=== PATIENT | male | born 1955 | race Caucasian/White ===

== ENCOUNTER → 2021-07-24 | Outpatient (CLI) | payer MEDICARE ==
[2021-07-24 14:52] LABS: BASO # 0.03 K/mm3 (0.02-0.10); EOS # 0.17 K/mm3 (0.04-0.40); EOS % 2.6 % (0.0-4.0); HEMATOCRIT 50.7 % (42.0-52.0); LYMPH# 1.27 K/mm3 (1.50-4.00); MEAN CELL VOLUME 89 fl (78-100); MEAN CORPUSCULAR HEMOGLOBIN 30 pg (27-31); MEAN CORPUSCULAR HGB CONC 34 g/dL (33-37); MEAN PLATELET VOLUME 9.3 fl (7.4-10.4); MONO # 0.54 K/mm3 (0.20-0.80); NEU # 4.62 K/mm3 (1.40-6.50); PLATELET COUNT 185 K/mm3 (130-400); RED CELL DISTRIBUTION WIDTH 12.3 % (11.5-14.5); WHITE BLOOD COUNT 6.6 K/mm3 (4.8-10.8)
[2021-07-24 15:01] LABS: ALBUMIN 4.1 g/dL (3.4-4.8); POTASSIUM 4.2 mmol/L (3.5-5.1)
[2021-07-24 15:02] LABS: CALCIUM 9.6 mg/dL (8.3-10.5)
[2021-07-24 15:04] LABS: TOTAL PROTEIN 7.1 g/dL (6.2-8.1)
[2021-07-24 15:05] LABS: TOTAL BILIRUBIN 2.4 mg/dL (0.2-1.2)
[2021-07-24 15:10] LABS: MAGNESIUM 1.81 mg/dL (1.60-2.60)
[2021-07-24 16:14] LABS: ERYTHROCYTE SEDIMENTATION RATE 7 mm/hr (0-20)
[2021-07-25 02:19] LABS: TESTOSTERONE 323 ng/dL (221-716)
== END ==
LOC: LAB 14:33
PROVIDERS: Internal Medicine
DX: Z12.5 Encounter for screening for malignant neoplasm of prostate (principal); I25.10 Atherosclerotic heart disease of native coronary artery without angina pectoris; K90.9 Intestinal malabsorption, unspecified; I10 Essential (primary) hypertension; E78.2 Mixed hyperlipidemia; M15.9 Polyosteoarthritis, unspecified; F52.21 Male erectile disorder; L20.9 Atopic dermatitis, unspecified

== ENCOUNTER → 2022-12-31 | Outpatient (CLI) | payer MEDICARE ==
[2022-12-31 13:13] LABS: D-DIMER 0.53 mg/L FEU (0.15-0.50)
== END ==
LOC: LAB 12:28
PROVIDERS: Internal Medicine
DX: Z12.5 Encounter for screening for malignant neoplasm of prostate (principal); M15.9 Polyosteoarthritis, unspecified; I25.10 Atherosclerotic heart disease of native coronary artery without angina pectoris; E78.2 Mixed hyperlipidemia; I10 Essential (primary) hypertension; K90.9 Intestinal malabsorption, unspecified; L20.9 Atopic dermatitis, unspecified; N40.1 Benign prostatic hyperplasia with lower urinary tract symptoms; F52.21 Male erectile disorder; R20.2 Paresthesia of skin

== ENCOUNTER → 2024-02-10 | Outpatient (CLI) | payer MEDICARE ==
[2024-02-10 08:55] LABS: BASO # 0.01 K/mm3 (0.02-0.10); EOS # 0.01 K/mm3 (0.04-0.40); EOS % 0.1 % (0.0-4.0); HEMATOCRIT 49.4 % (42.0-52.0); HEMOGLOBIN 16.1 g/dL (13.5-18.0); LYMPH# 0.71 K/mm3 (1.50-4.00); MEAN CELL VOLUME 95 fl (78-100); MEAN CORPUSCULAR HEMOGLOBIN 31 pg (27-31); MEAN CORPUSCULAR HGB CONC 33 g/dL (33-37); MEAN PLATELET VOLUME 9.3 fl (7.4-10.4); MONO # 0.48 K/mm3 (0.20-0.80); NEU # 9.37 K/mm3 (1.40-6.50); PLATELET COUNT 181 K/mm3 (130-400); RED BLOOD COUNT 5.21 M/mm3 (4.20-5.60); WHITE BLOOD COUNT 10.6 K/mm3 (4.8-10.8)
[2024-02-10 09:03] LABS: ALBUMIN 4.2 g/dL (3.4-4.8)
[2024-02-10 09:04] LABS: CALCIUM 9.4 mg/dL (8.3-10.5)
[2024-02-10 09:06] LABS: TOTAL PROTEIN 6.4 g/dL (6.2-8.1)
[2024-02-10 09:12] LABS: MAGNESIUM 2.05 mg/dL (1.60-2.60)
[2024-02-10 09:50] LABS: TOTAL BILIRUBIN 1.5 mg/dL (0.2-1.2)
[2024-02-10 23:10] LABS: TESTOSTERONE 179 ng/dL (221-716)
[2024-02-10 23:12] LABS: HEPATITIS C VIRUS ANTIBODY Negative (Nonreactiv)
== END ==
LOC: LAB 08:24
PROVIDERS: Internal Medicine
DX: Z12.5 Encounter for screening for malignant neoplasm of prostate (principal); Z12.11 Encounter for screening for malignant neoplasm of colon; Z11.59 Encounter for screening for other viral diseases; I10 Essential (primary) hypertension; E78.2 Mixed hyperlipidemia; N52.9 Male erectile dysfunction, unspecified; R73.9 Hyperglycemia, unspecified; M85.80 Other specified disorders of bone density and structure, unspecified site

== ENCOUNTER → 2024-02-18 | Outpatient (CLI) | payer MEDICARE ==
[2024-02-18 18:47] LABS: FOLLICLE STIMULATING HORMONE 4.5 mIU/mL (1.0-12.0); PROLACTIN AMS 18.2 ng/mL (3.5-19.4)
== END ==
LOC: LAB 09:29
PROVIDERS: Internal Medicine
DX: R89.1 Abnormal level of hormones in specimens from other organs, systems and tissues (principal)

== ENCOUNTER → 2024-05-04 | Outpatient (CLI) | payer MEDICARE ==
[~2024-05-04] MED LIST: ATENOLOL100 MG PO; CELEBREX 200MG200 MG PO; FLOMAX0.4 MG PO; LISINOPRIL40 MG PO; PERCOCET 325 MG1 TA2 PO; PREDNISONE20 M1 PO; TORSEMIDE20 M1 PO; TRAMADOL 50 MG TAB PO; TYLENOL ARTHRI650 M2 PO
[2024-05-04 12:51] LABS: ALBUMIN 4.1 g/dL (3.4-4.8)
[2024-05-04 12:53] LABS: CALCIUM 9.9 mg/dL (8.3-10.5)
[2024-05-04 12:54] LABS: TOTAL PROTEIN 6.7 g/dL (6.2-8.1)
[2024-05-04 12:56] LABS: TOTAL BILIRUBIN 1.4 mg/dL (0.2-1.2)
[2024-05-04 13:01] LABS: MAGNESIUM 2.47 mg/dL (1.60-2.60)
== END ==
LOC: LAB 12:19
PROVIDERS: Internal Medicine
DX: I10 Essential (primary) hypertension (principal)

== ENCOUNTER 2024-05-05 07:44 | Emergency (ER) | payer MEDICARE ==
[~2024-05-05] VITALS: Ht 170.2 cm; Wt 98.8 kg
[2024-05-05] MEDS ORDERED: TORSEMIDE20 M1 PO (08:02)
[2024-05-05] MEDS ORDERED: TRAMADOL 50 MG TAB PO (08:02)
[2024-05-05] MEDS ORDERED: LISINOPRIL40 MG PO (08:03)
[2024-05-05] MEDS ORDERED: ATENOLOL100 MG PO (08:03)
[2024-05-05] MEDS ORDERED: FLOMAX0.4 MG PO (08:04)
[2024-05-05] MEDS ORDERED: PREDNISONE20 M1 PO (08:05)
[2024-05-05] MEDS ORDERED: TYLENOL ARTHRI650 M2 PO (08:05)
[2024-05-05] MEDS ORDERED: CELEBREX 200MG200 MG PO (08:06)
[2024-05-05 08:41] LABS: BASO # 0.01 K/mm3 (0.02-0.10); EOS # 0.02 K/mm3 (0.04-0.40); EOS % 0.2 % (0.0-4.0); HEMATOCRIT 51.5 % (42.0-52.0); LYMPH# 0.78 K/mm3 (1.50-4.00); MEAN CELL VOLUME 96 fl (78-100); MEAN CORPUSCULAR HEMOGLOBIN 32 pg (27-31); MEAN CORPUSCULAR HGB CONC 33 g/dL (33-37); MEAN PLATELET VOLUME 9.2 fl (7.4-10.4); MONO # 0.72 K/mm3 (0.20-0.80); NEU # 8.37 K/mm3 (1.40-6.50); PLATELET COUNT 161 K/mm3 (130-400); RED BLOOD COUNT 5.35 M/mm3 (4.20-5.60); RED CELL DISTRIBUTION WIDTH 13.9 % (11.5-14.5); WHITE BLOOD COUNT 9.9 K/mm3 (4.8-10.8)
[2024-05-05] MEDS ORDERED: oxyCODONE/Acetaminophen 5-325 MG TAB PO ONE ×4 (08:45→20:30)
[2024-05-05] MEDS ORDERED: Acetaminophen 325 MG TAB PO ONE ×3 (08:45→20:30)
[2024-05-05 08:50] LABS: SODIUM 139 mmol/L (136-145)
[2024-05-05 08:51] LABS: CALCIUM 9.3 mg/dL (8.3-10.5)
[2024-05-05 08:52] LABS: GLUCOSE 85 mg/dL (75-110)
[2024-05-05 08:53] LABS: CARBON DIOXIDE 26 mmol/L (23-31)
[2024-05-05 08:58] LABS: RSV RAPID MOLECULAR IN HOUSE NEGATIVE (NEGATIVE)
[2024-05-05 09:04] LABS: TROPONIN-I < 0.030 ng/mL (0.00-0.033)
[2024-05-05] MEDS ORDERED: NS 1,000 ML IV SCH ×3 (10:00→15:30)
[2024-05-05] MEDS ORDERED: Albuterol 0.083% Nebule (2.5 MG/3 ML) IH ONE (11:15)
[2024-05-05 13:01] LABS: PH-URINE 6.5 (5.0 - 8.0); URINE APPEARANCE CLEAR (CLEAR); URINE BILIRUBIN NEGATIVE (NEGATIVE); URINE BLOOD NEGATIVE (NEGATIVE); URINE COLOR YELLOW (YELLOW); URINE GLUCOSE NEGATIVE (NEGATIVE); URINE KETONE NEGATIVE (NEGATIVE); URINE LEUKOCYTE ESTERASE NEGATIVE (NEGATIVE); URINE NITRATE NEGATIVE (NEGATIVE); URINE PROTEIN(semi-quant) NEGATIVE (NEGATIVE)
[2024-05-05 18:40] LABS: CALCIUM 8.1 mg/dL (8.3-10.5)
[2024-05-05 20:16] VITALS: BP 114/63
[2024-05-05] MEDS ORDERED: PERCOCET 325 MG1 TA2 PO (20:20)
[2024-05-05] MEDS ORDERED: Home oxyCODONE/Acetaminophen 5/325 MG #4 TAB/PACK PO ONE (20:30)
== END 2024-05-05 20:40 | disposition home or self-care (01) ==
LOC: ED 07:44
PROVIDERS: Family Medicine
DX: E86.9 Volume depletion, unspecified (principal); I87.2 Venous insufficiency (chronic) (peripheral); I95.9 Hypotension, unspecified; M54.50 Low back pain, unspecified; Z95.5 Presence of coronary angioplasty implant and graft
CPT/HCPCS: J7030